=== PATIENT | female | born 1925 | race Caucasian/White ===

== ENCOUNTER → 2016-08-22 | Outpatient (CLI) | payer MEDICARE ==
[~2016-08-22] MED LIST: AMIT8CAP6 OR; AZEL0.05; CELE100 PO; CYTO100T OR; FLUT50I; HYZA50TA2 PO; MELA10CA PO; MONT10TA2 PO; NAPR500 OR; TRAM50 PO; TRYP500T PO; red yeast rice PO
--- NOTE | 2016-08-23 10:21 | RADRPT ---
EXAM DATE/TIME: 08/22/2016 13:10 CONSULTATION: Patient is kindly referred for possible consideration of uterine fibroid embolization due to potentia l mass effect on the bladder with ongoing urinary incontinence. Uterine fibroid embolization has limi jonah role in improving bulk symptoms but has been shown to improve urinary frequency. However, UFE has not been shown to substantially improve urinary incontinence. This in addition to concerns regarding patient's age and uncertainty regarding her fibroid pathology makes uterine fibroid embolization not an ideal treatment option for this patient. Thank you for this consultation. Bret Brandt MD on August 23, 2016 at 9:47 Board Certified Radiologist. This report was verified electronically.
== END ==
LOC: HRAD 12:58
PROVIDERS: ATTEND Obstetrics & Gynecology
DX: N32.89 Other specified disorders of bladder (principal)

== ENCOUNTER 2016-09-26 12:36 | Emergency (ER) | payer MEDICARE, OTHER ==
[~2016-09-26] VITALS: Ht 165.1 cm; Wt 61.9 kg
[~2016-09-26 12:36] MED LIST changes: +ALPH600C PO; +AMIT24CA5 PO; -AMIT8CAP6 OR; -AZEL0.05; +CALC1TAB12; -CELE100 PO; +CHLO4TAB PO; +CYAN1TAB24; -CYTO100T OR; +CYTO200T PO; +ERGO2000 PO; -FLUT50I; +FLUT50SP EACH NARE; -HYZA50TA2 PO; +LAMI250T PO; +LOSA50TA2 PO; -MELA10CA PO; +MIRA25TA PO; -MONT10TA2 PO; +MONT10TA4 PO; -NAPR500 OR; +SUVO1TAB PO; -TRAM50 PO; -TRYP500T PO; -red yeast rice PO
[2016-09-26 12:41] VITALS: BP 113/74; PULSE 81; RESP 18; TEMP 98.6; O2SAT 97
[2016-09-26] MEDS ORDERED: AREDS PO (12:58)
[2016-09-26] MEDS ORDERED: RED600TA PO (12:58)
[2016-09-26] MEDS ORDERED: AZEL1SPR2 EACH NARE (12:58)
--- NOTE | 2016-09-26 13:23 | PD ---
HPI Chief Complaint: Laceration/Skin Injury Time Seen by Provider: 13:05 Travel History International Travel<30 days: No Contact w/Intl Traveler<30days: No Traveled to known affect area: No History of Present Illness HPI 89-year-old female presents emergency department for evaluation of laceration to left index finger. Patient reports that prior to arrival she tripped on uneven jessy falling to her left side. She reports she was carrying her keys within her left hand which caused a laceration to left index finger. She denies head injury or loss of consciousness. The patient is not anticoagulated. She denies headache, visual changes, neck pain, chest pain, abdominal pain, hip or pelvis pain. She reports pain only in the left index finger which is constant, worse with movement, no alleviating factors. Tetanus immunization unknown PFSH Past Medical History Arthritis: Yes Blood Disorders: No Cancer: Yes (hx of breast cancer) Cardiovascular Problems: Yes High Cholesterol: Yes Diabetes: No Diminished Hearing: Yes (BILATERAL HEARING AIDS) Endocrine: No Gastrointestinal Disorders: Yes (IBS) Glaucoma: No Genitourinary: No Hepatitis: No Hiatal Hernia: No Hypertension: Yes Immune Disorder: No Implanted Vascular Access Dvce: Yes Medical other: Yes (arthritis) Musculoskeletal: Yes Neurologic: Yes (NEUROPATHY) Psychiatric: No Reproductive: No Respiratory: No Thyroid Disease: No Past Surgical History Abdominal Surgery: Yes Body Medical Devices: HEARING AIDES Ear Surgery: Yes (mastoid sx right ear) Gynecologic Surgery: Yes (RIGHT BREAST LUMPECTOMY) Pacemaker: No Tonsillectomy: Yes Other Surgery: Yes (CLOSED REDUCTION ANKLE) Social History Alcohol Use: Yes (WINE NIGHTLY) Tobacco Use: No Substance Use: No Allergies-Medications (Allergen,Severity, Reaction): Coded Allergies: Penicillin (Verified Allergy, Severe, 09/26/16) Tamoxifen (Verified Allergy, Severe, 09/26/16) Opiate Agonists (Narcotics) (Verified Allergy, Unknown, 09/26/16) Uncoded Allergies: paper tape (Allergy, Unknown, 09/09/16) RADIUM (Adverse Reaction, Intermediate, Swelling, 01/04/08) TAMAXIFEN (Adverse Reaction, Intermediate, TUMOR GROWTH, 01/04/08) Reported Meds & Prescriptions Reported Meds & Active Scripts Active Reported [Areds] 1 Tab PO DAILY Red Yeast Rice (Red Yeast Rice Extract) 600 Mg Tab 1,200 Mg PO BID Azelastine Nasal [place] (Azelastine HCl) 0.1% [place] 1 [place] EACH NARE BID Lamisil (Terbinafine) 250 Mg Tab 250 Mg PO DAILY Belsomra (Suvorexant) 5 Mg Tab 5 Mg PO HS Chlor-Trimeton (Chlorpheniramine Maleate) 4 Mg Tab 4 Mg PO Q4H PRN B12 (Cyanocobalamin) 1,000 Mcg Tab Alpha Lipoic Acid 600 Mg Cap 600 Mg PO DIRECTED Fluticasone Nasal [place] 50 Mcg/Act Naspr 50 Mcg EACH NARE BID 50 mcg/spray Montelukast (Montelukast Sodium) 10 Mg Tab 10 Mg PO HS Amitiza (Lubiprostone) 24 Mcg Cap 24 Mg PO BID Cytotec (Misoprostol) 200 Mcg Tab 200 Mcg PO QID Losartan-Hydrochlorothiazide 50-12.5 Mg Tab 1 Tab PO DAILY Review of Systems Except as stated in HPI: all other systems reviewed are Neg General / Constitutional: No: Fever Eyes: No: Visual changes HENT: No: Headaches Cardiovascular: No: Chest Pain or Discomfort Respiratory: No: Shortness of Breath Gastrointestinal: No: Abdominal Pain Genitourinary: No: Dysuria Physical Exam Narrative GENERAL: Alert, well-appearing elderly female in no acute distress. SKIN: Focused skin assessment warm/dry. 2.5 cm laceration to the left index finger. HEAD: Atraumatic. Normocephalic. EYES: Pupils equal and round. No scleral icterus. No injection or drainage. ENT: No nasal bleeding or discharge. Mucous membranes pink and moist. NECK: Trachea midline. No JVD. No cervical midline tenderness CARDIOVASCULAR: Regular rate and rhythm. No murmur appreciated. No chest wall rib pain or tenderness RESPIRATORY: No accessory muscle use. Clear to auscultation. Breath sounds equal bilaterally. GASTROINTESTINAL: Abdomen soft, non-tender, nondistended. Hepatic and splenic margins not palpable. MUSCULOSKELETAL: No obvious deformities. No clubbing. No cyanosis. No edema. Left hand: Notable ecchymosis to dorsal aspect of left index finger. 2.5 cm laceration to the lateral/volar aspect of the index finger. Patient has full range of motion and normal sensation of the digit. No tendon injury visualized. Brisk cap refill. No deformity. NEUROLOGICAL: Awake and alert. No obvious cranial nerve deficits. Motor grossly within normal limits. Normal speech. PSYCHIATRIC: Appropriate mood and affect; insight and judgment normal. Data Data Last Documented VS Vital Signs Date Time Temp Pulse Resp B/P Pulse Ox O2 Delivery O2 Flow Rate FiO2 09/26/16 12:41 98.6 81 18 113/74 97 Orders Hand, Complete ([id number]) (09/26/16 ) [facility] Medical Decision Making Medical Screen Exam Complete: Yes Emergency Medical Condition: Yes Differential Diagnosis Finger laceration, tendon laceration, contusion, finger fracture, finger dislocation Narrative Course 89 YO female presents emergency department for evaluation of laceration to left index finger. Laceration was caused by car keys that cut the finger when the patient fell from a standing position after tripping on uneven jessy. She denies loss of consciousness or head injury. Patient is not anticoagulated. Patient's physical exam is reassuring. No tendon injury is suspected. Patient has full range of motion and normal sensation of the finger. She has no other injuries then the left index finger laceration. X-ray pending to rule out finger fracture due to the amount of ecchymosis over the dorsal aspect of the finger. X-ray of the left hand was negative for fracture. Laceration repair performed on left index finger. Patient tolerated procedure well. Wound care instructions and return precautions discussed with patient. Sutures need to be removed in 10 days. Patient verbalizes understanding and agrees to plan. Procedures Procedure Narrative LACERATION LOCATION: Left index finger LENGTH: 2.5 cm NUMBER OF STITCHES/KT: 7 REPAIR: The area of the laceration was prepped with Betadine and sterilely draped. 1% lidocaine digital block. The wound was copiously irrigated and explored without evidence of foreign body, tendon injury or neurovascular injury. The wound was closed using 4-0 Ethilon. This was a single layer repair. A sterile dressing was applied. The patient was advised to keep the dressing clean and dry. Patient tolerated the procedure well. Diagnosis Primary Impression: Finger laceration Qualified Code: S61.211A - Laceration of left index finger without foreign body without damage to nail, initial encounter Referrals: Primary Care Physician Additional Instructions: Do not submerge the wound in water. He may wash the area daily with soap and warm water and apply a new clean dressing. Take [id number] Tylenol or Motrin as needed for pain. The sutures need to be removed in 10 days. He can follow up with her primary care doctor for removal. Return to the emergency department if he developed new or worsening symptoms. Disposition: 01 DISCHARGE HOME Condition: Stable Negrita Bhatt Sep 26, 2016 13:23
--- NOTE | 2016-09-26 13:59 | RADRPT ---
EXAM DATE/TIME: 09/26/2016 13:18 [facility] COMPARISON: No previous studies available for comparison. INDICATIONS : Laceration to hand post fall. MEDICAL HISTORY : None. SURGICAL HISTORY : None. ENCOUNTER: Initial ACUITY: 1 day PAIN SCORE: 2/10 LOCATION: Left Hand. FINDINGS: Three view examination of the left hand demonstrates diffuse osteopenia the bony structures along wit h primary bony degenerative changes involving the PIP and DIP joints. This is characteristic of osteo arthritis. There is osteoarthritis involving the carpal bones. No acute fracture or joint dislocation is demonstrated. No radiopaque foreign bodies are demonstrated.. CONCLUSION: 1. No acute fracture or joint dislocation. 2. 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 Tyrone Kelley MD on September 26, 2016 at 13:56 Board Certified Radiologist. This report was verified electronically.
[2016-09-26] MEDS ORDERED: TETANUS/DIPHTHERIA TOXOID ADULT 0.5 ML VIAL IM ONE (14:30)
[2016-09-27] MEDS ORDERED: OCUVTAB4 PO (17:32)
== END 2016-09-26 14:50 | disposition home or self-care (01) ==
LOC: PHED 12:36
DX: S61.211A Laceration without foreign body of left index finger without damage to nail, initial encounter (principal); E78.00 Pure hypercholesterolemia, unspecified; K58.9 Irritable bowel syndrome, unspecified; I10 Essential (primary) hypertension; G62.9 Polyneuropathy, unspecified; H91.90 Unspecified hearing loss, unspecified ear; W01.198A Fall on same level from slipping, tripping and stumbling with subsequent striking against other object, initial encounter; Y93.89 Activity, other specified; Y92.9 Unspecified place or not applicable
CPT/HCPCS: 12001; 73130; 90471; 90714

== ENCOUNTER → 2017-03-04 | Day surgery (SDC) | payer OTHER ==
[~2017-03-04] VITALS: Ht 167.6 cm; Wt 70.9 kg
[~2017-03-04] MED LIST changes: +ACETAMINOPHEN 1000 MG/100 ML 100 ML IV ONE; -AMIT24CA5 PO; +AMIT24CA9 PO; +AZEL0.05 EACH EYE; +CALC-131 PO; -CALC1TAB12; +CHLORHEXIDINE GLUCONATE 2 % 1 PACK (2 CLOTHS) TOPICAL PRN; -CYAN1TAB24; +CYAN1TAB24 PO; +DO NOT ADM ANY ANTICOAGULANT DRUGS PRN; -ERGO2000 PO; +GABA100C4 PO; +KETOROLAC TROMETHAMINE 30 MG/ML (IVP) VIAL IV PUSH PRN; +LACTATED RINGER'S 1000 ML IV PRN; -LAMI250T PO; +LIDOCAINE 0.5%/EPINEPHrine 1:200,000 SOLN 50 ML VIAL ONE; +LIDOCAINE HCL 1% PF 5 ML SYRINGE OTHER ONE; +METOPROLOL TARTRATE 25 MG TAB PO PRN; -MIRA25TA PO; +POTA10CA PO; +POVIDONE IODINE 5% (ANTISEPSIS KIT) 4 APPLICATIONS EACH NARE PRN; +PROPOFOL 200 MG/20 ML AMP IV ONE; +RED600TA PO; +REFRDRO EACH EYE; +SODIUM CHLORID 0.9% 500 ML IV PRN; -SUVO1TAB PO; +TRYP500T PO; +VITD400 PO
[2017-03-04 11:58] LABS: AUTOMATED NEUTROPHIL # 3.2 TH/MM3 (1.8-7.7); BASOPHIL # 0.1 TH/MM3 (0-0.2); BASOPHIL % 1.2 % (0.0-2.0); EOSINOPHIL # 0.2 TH/MM3 (0-0.4); EOSINOPHIL % 4.4 % (0.0-4.0); HEMATOCRIT 41.5 % (35.0-46.0); HEMOGLOBIN 14.3 GM/DL (11.6-15.3); LYMPH % 21.8 % (9.0-44.0); LYMPHOCYTE # 1.2 TH/MM3 (1.0-4.8); MEAN CELL VOLUME 98.3 FL (80.0-100.0); MEAN CORPUSCULAR HEMOGLOBIN 33.9 PG (27.0-34.0); MEAN CORPUSCULAR HGB CONC 34.5 % (32.0-36.0); MEAN PLATELET VOLUME 8.8 FL (7.0-11.0); MONO % 12.8 % (0.0-8.0); MONOCYTE # 0.7 TH/MM3 (0-0.9); NEUT % 59.8 % (16.0-70.0); PLATELET COUNT 207 TH/MM3 (150-450); RED BLOOD COUNT 4.22 MIL/MM3 (4.00-5.30); RED CELL DISTRIBUTION WIDTH 13.3 % (11.6-17.2); WHITE BLOOD COUNT 5.4 TH/MM3 (4.0-11.0)
[2017-03-04 12:07] LABS: PROTHROMBIN TIME - PATIENT 10.1 SEC (9.8-11.6)
[2017-03-04 12:26] LABS: ALBUMIN 3.8 GM/DL (3.4-5.0); ALT (GPT) 20 U/L (10-53); AST (GOT) 21 U/L (15-37); BICARBONATE 28.9 MEQ/L (21.0-32.0); BLOOD UREA NITROGEN 13 MG/DL (7-18); CALCIUM 9.9 MG/DL (8.5-10.1); CHLORIDE 100 MEQ/L (98-107); CREATININE 0.61 MG/DL (0.50-1.00); GLOMERULAR FILTRATION RATE 92 ML/MIN (>89); GLUCOSE,RANDOM 89 MG/DL (74-106); SODIUM (NA) 136 MEQ/L (136-145)
[2017-03-04 12:28] LABS: ALKALINE PHOSPHATASE 91 U/L (45-117); TOTAL BILIRUBIN ADULT 0.6 MG/DL (0.2-1.0)
[2017-03-04 15:38] VITALS: BP 161/82; PULSE 64; RESP 18; TEMP 97.2; O2SAT 98
--- NOTE | 2017-03-04 17:59 | MP ---
cc: ELAINE SNYDER MD DATE OF SURGERY: 03/04/2017 PREOPERATIVE DIAGNOSIS: Thickened endometrial stripe. POSTOPERATIVE DIAGNOSIS: 1. Thickened endometrial stripe. 2. 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 PROCEDURE: Examination under anesthesia fractional dilation and curettage, biopsy of the urethra. SURGEON Elaine Snyder MD. WASH HOUSE WORKER Lola title i instructional assistant. ANESTHESIA: Laryngeal mask anesthesia ESTIMATED BLOOD LOSS 10 cc HISTORY The patient is an 89-year-old female, who has not had any postmenopausal bleeding but has a sense of pelvic pressure, pain, found on ultrasound imaging to have a couple of mass-like effects in the uterus, the largest of which is 5 cm, thought to represent probable leiomyomas. She also had a thickened endometrial stripe. For that reason she was seen in [facility] oncology office. I saw her in the office and I have seen her gain today in the preop holding area. I then reviewed these findings and the recommendations for an information gathering procedure. Recommend examination under anesthesia, fractional dilation and curettage, possible additional biopsies. She states that she has a follow up appointment already scheduled to her knowledge. Follow up for discussion of results within the next one to two weeks. FINDINGS: On exam under anesthesia there is no appreciably enlarged inguinal lymph nodes. External genitalia without mass or lesion. There is mild to moderate atrophic changes. There is a mass-like effect around the urethra that is compressible. It seems to represent most likely a normal urethral mucosa, possibly a polyp that is uncertain on exam if it is prolapse versus a mass. The cervix grossly appears normal. The uterine cavity sounds to 9 cm. The tissue obtained from the cervix and the endometrium is scant, a very small amount of tissue and all surfaces are gritty with the exception being in the right lower uterine segment, a smooth lesion was detected and with curetting and polyp forceps, a 1.5 cm polyp was removed, that was arising from the uterus, lower uterine segment. After this was removed, curetting feedback was gritty, normal endometrium. DESCRIPTION OF PROCEDURE: The patient was taken to the operating room, placed in dorsolithotomy position after laryngeal mask anesthesia was administered, time out was undertaken. She was identified by sight, recognition, hospital ID bracelet and the proposed procedure was reviewed and confirmed. Examination under anesthesia was performed with the findings as described above. She was prepped and draped in sterile fashion. In and out catheterization of the bladder was performed. Using a small handheld retractor, the cervix was identified, grasped with a tenaculum. The uterine cavity sounded. Cervix was dilated. Endocervical curetting was performed with multiple passes circumferentially. Biopsy tissue obtained was scant and was combined as endocervical curetting. Next a small curette was used. Multiple passes in the endometrium with findings as described above. Gritty surfaces everywhere with exception of the polyp that was removed after which curetting was smooth and the tissue was combined with endometrial curetting. The urethral mass was injected with a small amount of lidocaine and then sharp biopsy with the scalpel was used to remove a small piece in store marketing representative of this mass-like effect and then this area was reapproximated, rendered hemostatic with a couple of interrupted 3-0 Vicryl sutures. The tenaculum was removed from the cervix and the cervix tenaculum site were rendered hemostatic with topical Monsel's solution and the urethral biopsy site edges were also reinforced with Monsel's solution. There was good hemostasis. There were no remaining foreign objects in the vagina. Preliminary and final counts were correct. She was returned to dorsal supine position and was pending reversal of anesthesia when I left the operating room to precede her to the Post-Anesthesia Care Unit. MD ENRIQUE Griffin/EDDA /1:55 PM /5:32 PM
== END | disposition home or self-care (01) ==
LOC: HSDC 10:39
PROVIDERS: ATTEND Obstetrics & Gynecology Gynecologic Oncology
DX: R93.8 Abnormal findings on diagnostic imaging of other specified body structures (principal); N84.1 Polyp of cervix uteri; I10 Essential (primary) hypertension; K58.9 Irritable bowel syndrome, unspecified; R32 Unspecified urinary incontinence; J32.9 Chronic sinusitis, unspecified; M19.90 Unspecified osteoarthritis, unspecified site; L30.9 Dermatitis, unspecified; Z01.818 Encounter for other preprocedural examination; Z85.3 Personal history of malignant neoplasm of breast
CPT/HCPCS: 00942; 53200; 58120; 80053; 85025; 85610; 85730; 86850; 86900; 86901; 88305; J0131; J1885; J7120

== ENCOUNTER 2017-06-20 14:59 | Emergency (ER) | payer OTHER ==
[~2017-06-20] VITALS: Ht 165.1 cm; Wt 69.0 kg
[~2017-06-20 14:59] MED LIST changes: -ACETAMINOPHEN 1000 MG/100 ML 100 ML IV ONE; -CHLORHEXIDINE GLUCONATE 2 % 1 PACK (2 CLOTHS) TOPICAL PRN; -DO NOT ADM ANY ANTICOAGULANT DRUGS PRN; -KETOROLAC TROMETHAMINE 30 MG/ML (IVP) VIAL IV PUSH PRN; -LACTATED RINGER'S 1000 ML IV PRN; -LIDOCAINE 0.5%/EPINEPHrine 1:200,000 SOLN 50 ML VIAL ONE; -LIDOCAINE HCL 1% PF 5 ML SYRINGE OTHER ONE; -METOPROLOL TARTRATE 25 MG TAB PO PRN; -POVIDONE IODINE 5% (ANTISEPSIS KIT) 4 APPLICATIONS EACH NARE PRN; -PROPOFOL 200 MG/20 ML AMP IV ONE; -SODIUM CHLORID 0.9% 500 ML IV PRN
[2017-06-20 15:09] VITALS: BP 176/88; PULSE 94; RESP 17; TEMP 98.4; O2SAT 97
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
== END 2017-06-20 17:41 | disposition home or self-care (01) ==
LOC: NEPD 14:59
DX: S39.012A Strain of muscle, fascia and tendon of lower back, initial encounter (principal); S63.501A Unspecified sprain of right wrist, initial encounter; M51.36 Other intervertebral disc degeneration, lumbar region; I10 Essential (primary) hypertension; M19.90 Unspecified osteoarthritis, unspecified site; G62.9 Polyneuropathy, unspecified; V43.52XA Car driver injured in collision with other type car in traffic accident, initial encounter; Z87.19 Personal history of other diseases of the digestive system; Z79.899 Other long term (current) drug therapy
CPT/HCPCS: 72100; 72220; 73110; 99284